=== PATIENT | male | born 1950 | race Caucasian/White ===

== ENCOUNTER 2016-04-12 10:20 | Day surgery (SDC) | payer BC, OTHER ==
[~2016-04-12] VITALS: Ht 177.8 cm; Wt 86.2 kg
[~2016-04-12 10:20] MED LIST: CEFAZOLIN 1 GM IVPB PREMIX 50 ML IV ONE; GLIP5TAB13 PO; GLU500 PO; LIP40 PO; LISI20TA PO
[2016-04-12 10:51] VITALS: O2SAT 99
[2016-04-12] MEDS ORDERED: fentaNYL CITRATE 250 MCG/5 ML AMP IV ONE (11:50)
[2016-04-12] MEDS ORDERED: ROCURONIUM BROMIDE 10 MG/ML (ZEMURON) IV ONE (11:50)
[2016-04-12] MEDS ORDERED: BUPIVACAINE /PF 0.25% 30 ML VIAL INJ ONE (11:50)
[2016-04-12] MEDS ORDERED: ONDANSETRON HCL 4 MG/2 ML VIAL IVP ONE (11:50)
[2016-04-12] MEDS ORDERED: PROPOFOL 200MG/ 20ML VIAL (DIPRIVAN) IV ONE (11:50)
[2016-04-12] MEDS ORDERED: SEVOFLURANE 15 MIN GAS INH ONE (11:50)
[2016-04-12] MEDS ORDERED: PHENYLEPHRINE HCL 10 MG/ML VIAL (NEOSYNEPHRINE) IV ONE (11:50)
[2016-04-12] MEDS ORDERED: GLYCOPYRROLATE 0.2 MG/ML VIAL IJ ONE (11:50)
[2016-04-12] MEDS ORDERED: MIDAZOLAM HCL 5 MG/5 ML VIAL IVP ONE (11:50)
[2016-04-12] MEDS ORDERED: LR 1,000 ML IV.SOLN IV ONE (11:50)
[2016-04-12] MEDS ORDERED: POLYMYXIN 500,000/BACIT.10,000 UNITS in NS IRR 1 L IR ONE (12:03)
[2016-04-12] MEDS ORDERED: LR 1,000 ML IV SCH (12:22)
[2016-04-12] MEDS ORDERED: MORPHINE 4 MG/ML INJ. SYRINGE IVP PRN ×3 (12:30)
[2016-04-12] MEDS ORDERED: METOCLOPRAMIDE HCL 10 MG/2 ML VIAL IVP PRN (12:30)
[2016-04-12] MEDS ORDERED: D5/0.45 NS 1,000 ML IV SCH (12:36)
[2016-04-12] MEDS ORDERED: HYDROmorphone 1 MG INJ. 1 MG/ML AMPUL IVP PRN (12:45)
[2016-04-12] MEDS ORDERED: HYDROcodone/ACETAMIN 5-325 MG TAB (NORCO/ VICODIN) PO PRN ×2 (12:45)
[2016-04-12 14:18] VITALS: BP 112/71; PULSE 64; RESP 16
== END 2016-04-12 15:35 | disposition home or self-care (01) ==
LOC: SDS 10:20 → SMU 10:27 → SDS 15:35
PROVIDERS: ATTEND Colon & Rectal Surgery
DX: K42.0 Umbilical hernia with obstruction, without gangrene (principal); I10 Essential (primary) hypertension; J44.9 Chronic obstructive pulmonary disease, unspecified; M19.90 Unspecified osteoarthritis, unspecified site; G62.9 Polyneuropathy, unspecified
CPT/HCPCS: 49587; 88302; C1781; J0690; J2250; J2370; J2405; J2704; J3010; J3490 ×2; J7120